=== PATIENT | female | born 1980 | race Caucasian/White ===

== ENCOUNTER 2017-04-27 13:20 | Emergency (ER) | payer OTHER ==
[~2017-04-27] VITALS: Ht 165.1 cm; Wt 66.0 kg
[2017-04-27] MEDS ORDERED: FLAGYL500 MG PO (15:50)
[2017-04-27] MEDS ORDERED: DIFLUCAN150 MG PO (15:50)
[2017-04-27] MEDS ORDERED: BACTRIM,SEPT1 TABLET PO (15:50)
[2017-04-27 16:01] VITALS: BP 101/66
== END 2017-04-27 16:31 | disposition home or self-care (01) ==
LOC: EME 13:20
PROC: 3E0234Z Introduction of Serum, Toxoid and Vaccine into Muscle, Percutaneous Approach (ICD-10-PCS; principal; 2017-04-27)
DX: S60.571A Other superficial bite of hand of right hand, initial encounter (principal); W54.0XXA Bitten by dog, initial encounter; Z23 Encounter for immunization
CPT/HCPCS: 99281; 99284

== ENCOUNTER 2018-06-22 14:33 | Emergency (ER) | payer OTHER ==
[~2018-06-22] VITALS: Ht 152.4 cm; Wt 64.1 kg
[~2018-06-22 14:33] MED LIST: BACTRIM,SEPT1 TABLET PO; DIFLUCAN150 MG PO; FLAGYL500 MG PO
[2018-06-22 15:39] LABS: HEMATOCRIT 37.4 % (36.0-46.0); MCH 31.1 PG (29.0-34.0); MCHC 34.8 G/DL (30.0-36.0); MCV 89.5 FL (83-99); PLATELET COUNT 226 K/uL (156-360); RBC DIS.WIDTH-CV 12.7 % (11.8-14.6); RBC DIS.WIDTH-SD 41.6 % (39-53); RED BLOOD COUNT 4.18 M/uL (3.80-5.20)
[2018-06-22 15:50] LABS: ALBUMIN 4.2 g/dL (3.2-4.8); CHLORIDE 103 mEq/L (99-109); POTASSIUM 4.1 mEq/L (3.7-5.4); SODIUM 138 mEq/L (136-147)
[2018-06-22 15:53] LABS: GLUCOSE 102 mg/dL (70-99); TOTAL PROTEIN 6.7 g/dL (6.4-8.3)
[2018-06-22 15:54] LABS: TOTAL BILIRUBIN 0.8 mg/dL (0.0-1.0)
[2018-06-22 15:56] LABS: ALKALINE PHOSPHATASE 34 IU/L (3-129); CREATININE 0.8 mg/dL (0.6-1.3); GFR ESTIMATE (CALCULATED) > 59 mL/min/
[2018-06-22 15:57] LABS: UREA NITROGEN (BUN) 9 mg/dL (9-23)
[2018-06-22 15:58] LABS: AST (GOT) 13 IU/L (2-34)
[2018-06-22 15:59] LABS: ALT (GPT) 15 IU/L (3-49)
[2018-06-22 16:00] LABS: LIPASE 16 U/L (1.0-51.0)
[2018-06-22 16:07] LABS: TROP-I INTERPRETATION NEGATIVE; TROPONIN-I < 0.01 ng/mL (0.0-0.30)
[2018-06-22 16:09] LABS: QUANTITATIVE HCG < 4.0 MIU/ML
[2018-06-22 17:44] LABS: D-DIMER ELISA < 150.00 ng/mLDDU (<230)
[2018-06-22] MEDS ORDERED: ACID CONTROLLER20 MG PO (18:22)
[2018-06-22 18:38] VITALS: BP 104/66
== END 2018-06-22 19:16 | disposition home or self-care (01) ==
LOC: EME 14:33
PROVIDERS: Emergency Medicine
DX: K29.70 Gastritis, unspecified, without bleeding (principal); K21.9 Gastro-esophageal reflux disease without esophagitis; E86.0 Dehydration; Z87.19 Personal history of other diseases of the digestive system; Z88.0 Allergy status to penicillin
CPT/HCPCS: 71046; 80053; 83690; 84484; 84702; 85027; 85379; 93005; 99281; 99284; J7030